=== PATIENT | female | born 1975 | race Two or more races ===

== ENCOUNTER 2024-05-29 16:28 | Emergency (ER) | payer OTHER ==
[~2024-05-29] VITALS: Ht 152.4 cm; Wt 56.7 kg
[2024-05-29] MEDS ORDERED: FROVATRIPTAN S2.5 MG PO (17:55)
[2024-05-29] MEDS ORDERED: RIZATRIPTAN5 MG PO (17:55)
[2024-05-29] MEDS ORDERED: EMGALITY P120 MG/1 M SQ (17:55)
[2024-05-29] MEDS ORDERED: GUAIFENESIN 200 MG/10 ML BLIST.PACK PO STA (18:08)
[2024-05-29] MEDS ORDERED: GUAIFENESIN 200 MG/10 ML BLIST.PACK PO ONE (18:15)
[2024-05-29 18:32] LABS: HEMATOCRIT 40.9 % (36.0-45.00); HEMOGLOBIN 13.8 g/dL (12.0-15.00); MEAN CELL VOLUME 90.4 fL (80.00-100.00); MEAN CORPUSCULAR HEMOGLOBIN 30.5 pg (27.00-32.0); MEAN CORPUSCULAR HGB CONC 33.8 g/dl (32.0-36.0); PLATELET COUNT 210 K/uL (150-450); RED BLOOD COUNT 4.53 M/uL (4.00-6.00); RED CELL DISTRIBUTION WIDTH 13.8 % (11.5-14.5)
== END 2024-05-29 19:48 | disposition home or self-care (01) ==
LOC: ER 16:28
PROVIDERS: General Practice
DX: J10.1 Influenza due to other identified influenza virus with other respiratory manifestations (principal); Z20.822 Contact with and (suspected) exposure to COVID-19

== ENCOUNTER 2024-07-25 16:26 | Inpatient (IN) | payer OTHER ==
[~2024-07-25] VITALS: Ht 152.4 cm; Wt 59.0 kg
[~2024-07-25 16:26] MED LIST: EMGALITY P120 MG/1 M SQ; FROVATRIPTAN S2.5 MG PO; RIZATRIPTAN5 MG PO
--- NOTE | 2024-07-25 16:46 | NUR ---
PACIENTE REFIERE TOS DESDE LE VIERNES
[2024-07-25] MEDS ORDERED: METHYLPREDNISOLONE SOD SUCC 125 MG VIAL IV ONE (19:00)
[2024-07-25] MEDS ORDERED: GUAIFENESIN/DEXTROMETHORPHAN 100MG/10ML BLIST.PACK PO ONE (19:00)
[2024-07-25] MEDS ORDERED: IPRATROPIUM/ALBUTEROL SULFATE 3 ML AMPUL.NEB IH SCH (19:00)
[2024-07-25] MEDS ORDERED: GUAIFEN/DEXTROMETHORPHAN/PE 10 ML BLIST.PACK PO ONE (19:09)
[2024-07-25] MEDS ORDERED: METHYLPREDNISOLONE SOD SUCC 125 MG VIAL ONE (19:09)
[2024-07-25 19:29] LABS: MEAN CELL VOLUME 90.7 fL (80.00-100.00); MEAN CORPUSCULAR HEMOGLOBIN 30.2 pg (27.00-32.0); MEAN CORPUSCULAR HGB CONC 33.3 g/dl (32.0-36.0); PLATELET COUNT 231 K/uL (150-450); RED BLOOD COUNT 4.63 M/uL (4.00-6.00); RED CELL DISTRIBUTION WIDTH 13.9 % (11.5-14.5)
[2024-07-25 20:14] LABS: ALBUMIN 3.6 gm/dL (3.4-5.0); BILIRUBIN TOTAL 0.22 mg/dL (0.3-1.2); CALCIUM 9.7 mg/dL (8.5-10.1); CREATININE SERUM 0.58 mg/dL (0.55-1.02); GFR 111.43; GLOBULINA 3.9 G/DL (2.4-3.5); POTASSIUM 4.37 mEq/L (3.5-5.1); TOTAL PROTEIN 7.5 gm/dL (6.4-8.2)
[2024-07-25] MEDS ORDERED: IPRATROPIUM/ALBUTEROL SULFATE 3 ML AMPUL.NEB IH ONE (21:31)
[2024-07-25 21:40] LABS: ABG PH 7.406 (7.35-7.45); ABG PO2 69.4 mmHg (80-100); ABG pCO2 37.8 mmHg (35-45); BASE EXCESS -1.1 mmol/l; BICARBONATE 23.2 mmol/l (23-25); SaO2 93.7 %; Tco2 24.4 mmol/l
[2024-07-25 22:35] LABS: allen test SATISFACTORY; o2 21 %; puncture site RADIAL RIGHT
[2024-07-25] MEDS ORDERED: 0.9 % SODIUM CHLORIDE 1,000 ML IV SCH (23:00)
[2024-07-25] MEDS ORDERED: CEFTRIAXONE SODIUM 2,000 MG in 0.9 % SODIUM CHLORIDE 100 ML IV SCH (23:01)
[2024-07-25] MEDS ORDERED: AZITHROMYCIN 500 MG in DEXTROSE 5 % IN WATER 250 ML IV SCH (23:01)
[2024-07-25] MEDS ORDERED: ACETAMINOPHEN 500 MG GEL..CAP PO PRN (23:15)
[2024-07-26] MEDS ORDERED: IPRATROPIUM BROMIDE 0.5 MG/2.5 ML AMPUL.NEB IH SCH (01:00)
[2024-07-26] MEDS ORDERED: LEVALBUTEROL HCL 1.25 MG/3 ML SOLUTION IH SCH (01:00)
[2024-07-26] MEDS ORDERED: GUAIFEN/DEXTROMETHORPHAN/PE 10 ML BLIST.PACK PO SCH (01:00)
[2024-07-26] MEDS ORDERED: METHYLPREDNISOLONE SOD SUCC 40 MG VIAL IV SCH (01:00)
[2024-07-26 02:38] VITALS: BP 98/70; O2SAT 96
[2024-07-26] MEDS ORDERED: GUAIFEN/DEXTROMETHORPHAN/PE 10 ML BLIST.PACK PO ONE ×2 (03:11→07:42)
[2024-07-26] MEDS ORDERED: CEFTRIAXONE SODIUM 2,000 MG VIAL ONE ×2 (03:11→07:41)
[2024-07-26] MEDS ORDERED: AZITHROMYCIN 500 MG VIAL IV ONE (03:11)
[2024-07-26] MEDS ORDERED: LEVALBUTEROL HCL 1.25 MG/3 ML SOLUTION IH ONE (03:17)
[2024-07-26] MEDS ORDERED: IPRATROPIUM BROMIDE 0.5 MG/2.5 ML AMPUL.NEB IH ONE (03:18)
[2024-07-26 03:46] LABS: PARTIAL THROMBOPLASTIN TIME 25.9 SECONDS (22.0-34.0)
[2024-07-26] MEDS ORDERED: METHYLPREDNISOLONE SOD SUCC 40 MG VIAL ONE ×2 (03:52→07:41)
[2024-07-26 04:11] LABS: D DIMER < 0.19 MG/L
[2024-07-26 04:13] LABS: PROTHROMBIN TIME 10.9 SECONDS (9.0-11.5)
[2024-07-26 08:43] VITALS: BP 99/62; O2SAT 98
[2024-07-26] MEDS ORDERED: AZITHROMYCIN 500 MG VIAL IV SCH (09:00)
[2024-07-26 09:32] VITALS: BP 106/60
[2024-07-26 16:51] VITALS: BP 120/57; O2SAT 95
[2024-07-26] MEDS ORDERED: MONTELUKAST SODIUM 10 MG TABLET PO SCH ×2 (17:00)
[2024-07-27 01:00] VITALS: BP 90/51; O2SAT 100
[2024-07-27 08:37] VITALS: BP 109/69
[2024-07-27] MEDS ORDERED: NICOTINE 21MG/24HR PATCH.TD24 TD SCH (09:39)
[2024-07-27] MEDS ORDERED: NICOTINE PATCH1 EAC2 TOP (09:41)
[2024-07-27] MEDS ORDERED: LEVOFLOXACIN750 MG PO (09:42)
== END 2024-07-27 11:37 | disposition home or self-care (01) | DRG 192 ==
LOC: ER 16:28 → MEDI 23:03 → SEC-K 23:03 → MEDI 07-26 08:52
PROVIDERS: General Practice; Preventive Medicine Public Health & General Preventive Medicine; ADMIT Internal Medicine; ATTEND Internal Medicine
PROC: BB24ZZZ Computerized Tomography (CT Scan) of Bilateral Lungs (ICD-10-PCS; principal; 2024-07-25)
PROC: 3E0F7GC Introduction of Other Therapeutic Substance into Respiratory Tract, Via Natural or Artificial Opening (ICD-10-PCS; 2024-07-27)
DX: J44.0 Chronic obstructive pulmonary disease with (acute) lower respiratory infection (principal); J44.1 Chronic obstructive pulmonary disease with (acute) exacerbation; R09.02 Hypoxemia; J40 Bronchitis, not specified as acute or chronic; Z72.0 Tobacco use